=== PATIENT | male | born 1990 | race Caucasian/White ===

== ENCOUNTER 2016-05-27 02:28 | Emergency (ER) | payer MEDICAID ==
[~2016-05-27] VITALS: Ht 188 cm; Wt 113.4 kg
[2016-05-27 02:40] VITALS: BP 129/80; PULSE 100; RESP 16; TEMP 97.8; O2SAT 98
--- NOTE | 2016-05-27 02:40 | NUR ---
Pt placed in bed 4 and gowned up for evaluation
--- NOTE | 2016-05-27 03:05 | NUR ---
Pt presents to ED with c/o generalized body ache, pain 5/10, with stiffness in the lower back, intermitten muscle spasm at extremities, hands and feet swelling x3 weeks. Pt taken ibuprofen and tylenol with minimal relief. A&Ox4, denies SOB or chestpain, denies N/V/D, no sign of injury noted. Radial and pedal pulses WNL. WIll continue to monitor
--- NOTE | 2016-05-27 03:23 | NUR ---
at bedside examining pt
[2016-05-27 04:17] LABS: BILIRUBIN,URINE 1+ (NEGATIVE); BLOOD, URINE NEGATIVE (NEGATIVE); CLARITY/URINE CLEAR (CLEAR); COLOR,URINE YELLOW (YELLOW); GLUCOSE,URINE NEGATIVE (NEGATIVE); KETONES,URINE TRACE (NEGATIVE); LEUKOCYTE ESTERASE ,URINE NEGATIVE (NEGATIVE); NITRITE, URINE NEGATIVE (NEGATIVE); PROTEIN URINE 1+ (NEGATIVE); UROBILINOGEN,URINE 0.2 (0.2-1.0)
[2016-05-27 04:19] LABS: CALCIUM 9.2 mg/dL (8.4-11.0); CREATININE 1.31 mg/dL (0.55-1.30); POTASSIUM 3.5 mmol/L (3.5-5.1)
[2016-05-27 04:25] LABS: ALBUMIN 3.8 g/dL (3.4-4.8); BASOPHILS % (AUTO) 0.2 % (0.0-2.0); EOSINOPHILS # (AUTO) 0.2 K/uL (0.0-0.4); EOSINOPHILS % (AUTO) 2.4 % (0.0-4.0); HEMOGLOBIN 14.1 g/dL (14.0-18.0); LYMPHOCYTES # (AUTO) 1.3 K/uL (1.0-5.5); MEAN CORPUSCULAR HEMOGLOBIN 30 pg (27-31); MEAN CORPUSCULAR HGB CONC 34 % (32-36); MEAN CORPUSCULAR VOLUME 88 fL (79.0-98.0); MONOCYTES # (AUTO) 0.6 K/uL (0.0-1.0); MONOCYTES % (AUTO) 8.4 % (1.7-9.3); NEUTROPHILS # (AUTO) 5.6 K/uL (1.8-7.7); PLATELET COUNT (AUTO) 185 K/uL (130-430); RED BLOOD CELL COUNT(AUTO) 4.76 MIL/uL (4.2-6.2); RED CELL DISTRIBUTION WIDTH 12.4 % (9.0-15.0); TOTAL BILIRUBIN 0.4 mg/dL (0.0-1.0); TOTAL PROTEIN, SERUM 8.6 g/dL (6.4-8.3); WHITE BLOOD COUNT (AUTO) 7.7 K/uL (4.8-10.8)
--- NOTE | 2016-05-27 04:30 | NUR ---
Pt in bed , VSS, denies distress
[2016-05-27 04:33] LABS: BACTERIA,URINE FEW /HPF (None Seen); MUCUS,URINE None Seen /LPF (None Seen); RBC,URINE 0-3 /HPF (0-3); WBC,URINE 0-3 /HPF (0-3)
[2016-05-27 05:15] LABS: ERYTHROCYTE SEDIMENTATION RATE 60 MM/HR (0-15)
[2016-05-27 05:45] VITALS: BP 128/80; PULSE 96; RESP 17; TEMP 97.8; O2SAT 99
--- NOTE | 2016-05-27 05:45 | NUR ---
Patient given written and verbal discharge instructions and verbalizes understanding. ER MD Romero discussed with patient the results and treatment provided. Patient in stable condition. ID arm band removed. Rx of motrin and lasix given. Patient educated on pain management and to follow up with PMD. Pain Scale 0/10 Opportunity for questions provided and answered.
== END 2016-05-27 05:45 | disposition home or self-care (01) ==
LOC: SED 02:28
DX: M25.50 Pain in unspecified joint (principal); R60.9 Edema, unspecified
CPT/HCPCS: 36415; 80053; 81000-TC; 85025; 85651-TC; 99284

== ENCOUNTER 2017-09-13 22:15 | Emergency (ER) | payer MEDICAID ==
[~2017-09-13] VITALS: Ht 188 cm; Wt 122.5 kg
[2017-09-13 22:18] VITALS: BP_SYST 156
[2017-09-13 22:55] VITALS: BP_SYST 147
== END 2017-09-13 22:58 | disposition home or self-care (01) ==
LOC: SED 22:15
DX: T63.441A Toxic effect of venom of bees, accidental (unintentional), initial encounter (principal); L53.0 Toxic erythema; R03.0 Elevated blood-pressure reading, without diagnosis of hypertension; Y92.89 Other specified places as the place of occurrence of the external cause
CPT/HCPCS: 99283